=== PATIENT | female | born 1970 | race African-American/Black ===

== ENCOUNTER 2016-12-15 03:16 | Emergency (ER) | payer SELFPAY ==
--- NOTE | ~2016-12-15 | US98 ---
[facility] A Service of [facility] RADIOLOGY TEXT RESULTS PATIENT: DOC LEWIS LOCATION: [facility] : 74 UNIT #: [id number] AGE: [address]: Alden Lynch MD SEX: F ORDER DR: [id number] [facility] [address] [place], [place] [address] [id number] E MR#: [id number] Acc #: [id number] NAME: DOC LEWIS : 1970 SEX: F STUDY DATE/TIME: 12/15/2016 7:47 UNIT: [facility] ROOM: STUDY DESCRIPTION: US Pelvic Non-OB Complete Attending Physician: Alden Lynch M.D. Ordering Physician: Jose Soliman D.O. Primary Care Physician: No Primary Care Physician MEDICAL IMAGING REPORT This report is preliminary unless electronic signature is present EXAM Pelvic ultrasound. INDICATIONS Previous uterine ablation 3 months ago with left lower quadrant pain since early this morning. COMPARISON 06/13/14. FINDINGS Transvaginal imaging was performed. The uterus is 5.8 x 4.3 x 4.8 cm. There is fluid in the endometrial cavity measuring 2.0 x 1.3 x 0.8 cm. There is a Nabothian cyst in the cervix. Both ovaries are visualized and they have normal flow. The right one is about 2.5 cm in diameter and the left ovary is about 2.0 cm in diameter. IMPRESSION 1. The ovaries are normal. 2. There is a 2 cm oval fluid collection in the endometrial cavity. 3. The uterus otherwise appears normal. Dictated by... Raúl Grace M.D. THIS IS AN ELECTRONICALLY VERIFIED REPORT Raúl Grace M.D. at 12/15/2016 3:38 PM FEL/bd [facility] A Service [facility] RADIOLOGY TEXT RESULTS PATIENT: DOC LEWIS LOCATION: [facility] : 74 UNIT #: [id number] AGE: [address]: Alden Lynch MD SEX: F ORDER DR: TD: 12/15/2016 14:03 JOB #: [id number] MEDICAL IMAGING REPORT Page 1 of 1 COPY
--- NOTE | ~2016-12-15 | CT4 ---
[facility] A Service of [facility] RADIOLOGY TEXT RESULTS PATIENT: DOC LEWIS LOCATION: [facility] : 74 UNIT #: [id number] AGE: [address]: Alden Lynch MD SEX: F ORDER DR: [id number] [facility] [address] [place], [place] [address] [id number] E MR#: [id number] Acc #: [id number] NAME: DOC LEWIS : 1970 SEX: F STUDY DATE/TIME: 12/15/2016 04:36 UNIT: [facility] ROOM: STUDY DESCRIPTION: CT Abd and Pelv Wo Cont Attending Physician: Alden Lynch M.D. Ordering Physician: Jose Soliman D.O. Primary Care Physician: Primary Care Physician No MEDICAL IMAGING REPORT This report is preliminary unless electronic signature is present EXAM Abdomen and pelvis CT, 12/15 at 04:36 INDICATION Lower abdominal pain since hysterectomy 3 months ago. TECHNIQUE Axial noncontrast images were obtained through the abdomen and pelvis. Multiplanar reformats were obtained. This CT exam was performed with one or more of the following radiation dose reduction techniques: automatic exposure control, adjustment of mA and/or kV according to patient size, and iterative reconstruction. COMPARISON No comparison. FINDINGS ABDOMEN: Lung bases are clear except for some mild atelectasis. Gallbladder is normal. No renal or ureteral stones are seen. No hydronephrosis. Unenhanced solid organs are normal. The unopacified GI tract is normal. There is no free fluid. PELVIS: The appendix is normal. Remainder of the unopacified GI tract is normal as well. Urinary bladder is normal. There are no lower ureteral stones. Solid pelvic organs are normal. Trace free fluid is probably physiologic. There is degenerative disease in the lower lumbar spine. IMPRESSION 1. Trace free fluid in the cul-de-sac, likely physiologic. Solid pelvic organs are normal. 2. Normal GI tract, including the appendix. [facility] A Service of [facility] RADIOLOGY TEXT RESULTS PATIENT: DOC LEWIS [id number] 74 UNIT #: [id number] AGE: [address]: Alden Lynch MD SEX: F ORDER DR: 3. No renal or ureteral stones. No hydronephrosis. Dictated by... Diego Mcduffie Jr., M.D. THIS IS AN ELECTRONICALLY VERIFIED REPORT Diego Mcduffie Jr., M.D. at 12/16/2016 1:54 AM JUNAID/roel TD: 12/15/2016 12:38 JOB #: [id number] MEDICAL IMAGING REPORT Page 1 of 1 COPY
[2016-12-15 04:24] LABS: URINE SOURCE CLEAN CATCH
[2016-12-15 04:31] LABS: BASOPHIL% 0.2 % (0-2.5); DIFF IND NO; EOSINOPHIL% 0.4 % (0.0-7.0); HEMATOCRIT 38.4 % (35.0-45.0); LYMPHOCYTE# 1.8 X10e3 (1.0-3.5); LYMPHOCYTE% 24.8 % (17.0-45.0); MEAN CELL VOLUME 90.2 FL (83-96); MEAN CORPUSCULAR HEMOGLOBIN 30.5 PG (28-34); MEAN CORPUSCULAR HGB CONC 33.8 g/dL (30-36); MEAN PLATELET VOLUME 7.4 FL (6.5-11.5); MONOCYTE# 0.6 X10e3 (0-1.0); MONOCYTE% 8.1 % (3.0-12.0); NEUTROPHIL# 4.8 X10e3 (1.5-7.1); NEUTROPHIL% 66.5 % (40-75); PLATELET COUNT 194 X10e3 (140-420); RED BLOOD COUNT 4.25 X10e (3.90-5.30); RED CELL DISTRIBUTION WIDTH 13.9 % (11.0-15.5); WHITE BLOOD COUNT 7.2 X10e3 (4.0-10.5)
[2016-12-15 04:35] LABS: URINE APPEARANCE CLEAR; URINE BILIRUBIN NEG (NEG); URINE BLOOD NEG (NEG); URINE COLOR YELLOW; URINE GLUCOSE NEG (NEG); URINE KETONE NEG (NEG); URINE LEUKOCYTE ESTERASE NEG (NEG); URINE NITRATE NEG (NEG); URINE PROTEIN NEG (NEG); URINE SPECIFIC GRAVITY 1.017 (1.003-1.035)
[2016-12-15 04:40] LABS: CULTURE INDICATED? NO
[2016-12-15 04:56] LABS: ALBUMIN SERUM 3.5 g/dL (3.5-5.0); BILIRUBIN, DIRECT 0.1 mg/dL (0.0-0.2); BILIRUBIN,INDIRECT 0.4 mg/dL (0.0-0.9); BILIRUBIN,TOTAL 0.5 mg/dL (0.2-2.0); BUN/CREATININE RATIO 18.57; CALCIUM SERUM 8.5 mg/dL (8.4-10.2); CREATININE SERUM 0.7 mg/dL (0.6-1.4); GLOM FILT RATE Estimated 122.1 mL/min (>60); POTASSIUM 3.8 mmol/L (3.5-5.1); PROTEIN TOTAL SERUM 6.6 g/dL (6.0-8.3)
[2016-12-15 05:56] LABS: AMPHETAMINE NEG (NEG); BARBITURATES NEG (NEG); BENZODIAZEPINES NEG (NEG); COCAINE NEG (NEG); MARIJUANA NEG (NEG); OPIATES POS (NEG); TRICYCLIC ANTIDEPRESSANTS NEG (NEG); U METHADONE NEG (NEG)
[2016-12-16 21:25] LABS: CHLAMYDIA TRACH Not Detected (Not Detected); N GONOR Not Detected (Not Detected)
== END 2016-12-15 09:09 | disposition home or self-care (01) ==
LOC: CED 03:16
PROVIDERS: Emergency Medicine
DX: N76.0 Acute vaginitis (principal); B96.89 Other specified bacterial agents as the cause of diseases classified elsewhere; I10 Essential (primary) hypertension
CPT/HCPCS: 36415; 74176; 76830; 76856; 80048; 80076; 80307; 81003; 83690; 84703; 85025; 87491; 87591; 87808; 87905; 96361; 96374; 96375; 99284; J1170; J1885; J2405